=== PATIENT | male | born 1960 | race Hispanic/Latino ===

== ENCOUNTER 2018-04-27 11:34 | Inpatient (IN) | payer SELFPAY ==
--- NOTE | 2018-04-27 12:12 | XRay Report ---
FINAL REPORT EXAM: XR CHEST 1V AP HISTORY: hypertension TECHNIQUE: Frontal chest x-ray. PRIORS: None currently available. FINDINGS: Cardiac silhouette is within normal limits. There is no effusion. There is no pneumothorax. There is no consolidation. There are no suspicious osseous lesions. IMPRESSION: No acute cardiopulmonary findings.
[2018-04-27 12:21] LABS: Basophils % (Auto) 0.6 % (0.0-1.8); Eosinophils # (Auto) 0.1 K/mm3 (0.0-0.4); Eosinophils % (Auto) 2.5 % (0.0-4.3); Hemoglobin 15.8 gm/dl (11.8-15.2); Lymphocytes # (Auto) 2.1 K/mm3 (1.2-5.4); Lymphocytes % (Auto) 38.1 % (13.4-35.0); Mean Corpuscular HGB Conc 35 % (32-34); Mean Corpuscular Volume 84 fl (84-94); Monocytes # (Auto) 0.4 K/mm3 (0.0-0.8); Monocytes % (Auto) 7.5 % (0.0-7.3); Platelet Count 229 K/mm3 (140-440); Red Blood Count 5.49 M/mm3 (3.65-5.03); Red Cell Distribution Width 14.9 % (13.2-15.2)
[2018-04-27 12:30] LABS: BUN/Creatinine Ratio 38; Blood Urea Nitrogen 15 mg/dL (9-20); Calcium 9.4 mg/dL (8.4-10.2); Hemolysis Index 175
[2018-04-27] MEDS ORDERED: CLEOCIN 600 MG/50 mL 600 MG/50 ML BAG IV ONE (12:33)
[2018-04-27 12:37] LABS: INR 0.87 (0.87-1.13); Partial Thromboplastin Time 30.7 Sec. (24.2-36.6)
--- NOTE | 2018-04-27 12:39 | Emergency Department Report ---
ED Neuro Deficit HPI - General Chief Complaint: Weakness Stated Complaint: NUMBNESS/WEAKNESS/HEADACHE Time Seen by Provider: 04/27/18 11:50 Source: patient, family Mode of arrival: Ambulatory Limitations: Other - History of Present Illness Initial Comments: This is a 57-year-old male that says he experienced paresthesias of essentially his entire left side as well as difficulty in walking at about 3 PM yesterday. He is here with a family member who states that another individual also observe this at or about second time. The family members states that the patient has slightly slurred speech. The patient has many other complaints to include chron ic dental infection and some vertigo. He states he has a history of vertigo in the past. He denies fever or chills. He is not complaining of headache. He's had no acute change in vision. He does seem to comprehend my questions normally. He states that he does not note the slurred speech himself but it has been pointed out to him. He denies any previous history of CVA. -: Gradual Location: speech, left arm, left leg Presenting Symptoms: Present: Weak/Paralyzed One Side History of same: No Place: home Severity: mild Quality: weak, tingling Improves With: none On Anticoagulants: No Context: gradual onset Associated Symptoms: denies other symptoms Treatments Prior to Arrival: none - Related Data Allergies/Adverse Reactions: Allergies Allergy/AdvReac Type Severity Reaction Status Date / Time No Known Allergies Allergy Unverified 04/27/18 11:35 ED Review of Systems ROS: Stated complaint: NUMBNESS/WEAKNESS/HEADACHE Other details as noted in HPI Constitutional: denies: chills, fever Eyes: denies: eye pain, eye discharge, vision change ENT: ear pain, other (bad dentition left lower). denies: throat pain Respiratory: denies: cough, shortness of breath, wheezing Cardiovascular: denies: chest pain, palpitations Endocrine: no symptoms reported Gastrointestinal: denies: abdominal pain, nausea, diarrhea Genitourinary: denies: urgency, dysuria Musculoskeletal: denies: back pain, joint swelling, arthralgia Skin: denies: rash, lesions Neurological: as per HPI, weakness, paresthesias, abnormal gait, other. denies: headache Psychiatric: denies: anxiety, depression Hematological/Lymphatic: denies: easy bleeding, easy bruising ED Past Medical Hx - Past Medical History Additional medical history: "Vertigo" - Social History Smoking Status: Current Every Day Smoker Substance Use Type: None ED Neuro Physical Exam - General Limitations: No Limitations General appearance: alert, in no apparent distress Suspected Stroke: Yes - Head Head exam: Present: atraumatic, normocephalic - Eye Eye exam: Present: normal appearance. Absent: scleral icterus - ENT ENT exam: Present: mucous membranes moist, other (there is gingival inflammation and caries of the second and third molar lower left. No silver abscess formation.) - Neck Neck exam: Present: normal inspection. Absent: tenderness, meningismus - Respiratory Respiratory exam: Present: normal lung sounds bilaterally. Absent: respiratory distress - Cardiovascular Cardiovascular Exam: Present: regular rate, normal rhythm. Absent: systolic murmur, diastolic murmur, rubs, gallop - GI/Abdominal GI/Abdominal exam: Present: soft, normal bowel sounds. Absent: distended, tenderness, guarding, rebound, rigid - Rectal Rectal exam: Present: deferred - Extremities Exam Extremities exam: Present: normal inspection - Back Exam Back exam: Present: normal inspection - Neurological Exam Neurological exam: Present: alert, oriented X3, CN II-XII intact, motor sensory deficit - NIHSS Assessment Interval: Baseline 1a. Level of Consciousness: alert/keenly responsive 1b. LOC Questions: answers both correctly 1c. LOC Commands: performs tasks correctly 2. Best Gaze: normal 3. Visual: no visual loss 4. Facial Palsy: normal symmetrical movement 5b. Motor Arm Right: no drift 5a. Motor Arm Left: drift (very slight) 6a. Motor Leg Left: no drift (not detectable) 6b. Motor Leg Right: no drift 7. Limb Ataxia: absent 8. Sensory: mild/moderate sensory loss 9. Best Language: no aphasia 10. Dysarthria: mild/moderate dysarthria (very slight dysarthria) 11. Extinction/Inattention: no abnormality Total Score: 3 Stroke Severity: Minor Stroke - Psychiatric Psychiatric exam: Present: normal affect, normal mood - Skin Skin exam: Present: warm, dry, intact, normal color. Absent: rash ED Course Vital Signs 04/27/18 04/27/18 11:39 11:41 Temperature 98.3 F Pulse Rate 84 Respiratory 18 Rate Blood Pressure 163/110 O2 Sat by Pulse 95 Oximetry - Reevaluation(s) Reevaluation #1: I will give the patient an NIH stroke score 3. However he scores very slight in the 3 given categories. I will presume he has had a mild stroke of perhaps nearly 22 hours duration. He is not a candidate for thrombolytics. He will be admitted for stroke workup. He will be started on aspirin. He will be admitted by Dr. Lang. 04/27/18 12:39 - Lab Data Result diagrams: 04/27/18 11:56 04/27/18 11:56 Lab Results 04/27/18 04/27/18 04/27/18 Range/Units 11:43 11:56 11:56 WBC 5.6 (4.5-11.0) K/mm3 RBC 5.49 H (3.65-5.03) M/mm3 Hgb 15.8 H (11.8-15.2) gm/dl Hct 46.0 H (35.5-45.6) % MCV 84 (84-94) fl MCH 29 (28-32) pg MCHC 35 H (32-34) % RDW 14.9 (13.2-15.2) % Plt Count 229 (140-440) K/mm3 Lymph % (Auto) 38.1 H (13.4-35.0) % [place] % (Auto) 7.5 H (0.0-7.3) % Eos % (Auto) 2.5 (0.0-4.3) % Baso % (Auto) 0.6 (0.0-1.8) % Lymph # 2.1 (1.2-5.4) K/mm3 [place] # 0.4 (0.0-0.8) K/mm3 Eos # 0.1 (0.0-0.4) K/mm3 Baso # 0.0 (0.0-0.1) K/mm3 Seg Neutrophils % 51.3 (40.0-70.0) % Seg Neutrophils # 2.9 (1.8-7.7) K/mm3 PT 12.2 (12.2-14.9) Sec. INR 0.87 (0.87-1.13) APTT 30.7 (24.2-36.6) Sec. Thrombin Time (15.1-19.6) Sec. Sodium (137-145) mmol/L Potassium (3.6-5.0) mmol/L Chloride (98-107) mmol/L Carbon Dioxide (22-30) mmol/L Anion Gap mmol/L BUN (9-20) mg/dL Creatinine (0.8-1.5) mg/dL Estimated GFR ml/min BUN/Creatinine Ratio % Glucose (75-100) mg/dL POC Glucose 340 H (70-105) Calcium (8.4-10.2) mg/dL Total Bilirubin (0.1-1.2) mg/dL Direct Bilirubin (0-0.2) mg/dL Indirect Bilirubin mg/dL AST (5-40) units/L ALT (7-56) units/L Alkaline Phosphatase (35-129) units/L Troponin T (0.00-0.029) ng/mL Total Protein (6.3-8.2) g/dL Albumin (3.9-5) g/dL Albumin/Globulin Ratio % 04/27/18 04/27/18 04/27/18 Range/Units 11:56 11:56 11:56 WBC (4.5-11.0) K/mm3 RBC (3.65-5.03) M/mm3 Hgb (11.8-15.2) gm/dl Hct (35.5-45.6) % MCV (84-94) fl MCH (28-32) pg MCHC (32-34) % RDW (13.2-15.2) % Plt Count (140-440) K/mm3 Lymph % (Auto) (13.4-35.0) % [place] % (Auto) (0.0-7.3) % Eos % (Auto) (0.0-4.3) % Baso % (Auto) (0.0-1.8) % Lymph # (1.2-5.4) K/mm3 [place] # (0.0-0.8) K/mm3 Eos # (0.0-0.4) K/mm3 Baso # (0.0-0.1) K/mm3 Seg Neutrophils % (40.0-70.0) % Seg Neutrophils # (1.8-7.7) K/mm3 PT (12.2-14.9) Sec. INR (0.87-1.13) APTT (24.2-36.6) Sec. Thrombin Time 16.8 (15.1-19.6) Sec. Sodium 133 L (137-145) mmol/L Potassium 4.7 (3.6-5.0) mmol/L Chloride 93.2 L (98-107) mmol/L Carbon Dioxide 23 (22-30) mmol/L Anion Gap 22 mmol/L BUN 15 (9-20) mg/dL Creatinine 0.4 L (0.8-1.5) mg/dL Estimated GFR > 60 ml/min BUN/Creatinine Ratio 38 % Glucose 384 H (75-100) mg/dL POC Glucose (70-105) Calcium 9.4 (8.4-10.2) mg/dL Total Bilirubin 0.40 (0.1-1.2) mg/dL Direct Bilirubin 0.2 (0-0.2) mg/dL Indirect Bilirubin 0.2 mg/dL AST < 5 L (5-40) units/L ALT < 5 L (7-56) units/L Alkaline Phosphatase 62 (35-129) units/L Troponin T < 0.010 (0.00-0.029) ng/mL Total Protein 6.9 (6.3-8.2) g/dL Albumin 4.3 (3.9-5) g/dL Albumin/Globulin Ratio 1.7 % - EKG Data -: EKG Interpreted by Me EKG shows normal: sinus rhythm, intervals, ST-T waves Rate: normal Interpretation: no acute changes, other (left posterior fascicular block/right bundle branch block and right axis) - Radiology Data Radiology results: report reviewed (chest x-ray no acute process. I didn't see anything grossly the CT of the head. Report is pending.) - Thrombolytic Inclusion/Exclusion Thrombolytic Exclusion Criteria: Symptom Onset > 3 Hours Thrombolytic Inclusion Criteria: NIH Stroke Scale Deficit Critical care attestation.: If time is entered above; I have spent that time in minutes in the direct care of this critically ill patient, excluding procedure time. ED Disposition Clinical Impression: Dental infection, Bifascicular block CVA (cerebral vascular accident) Qualifiers: CVA mechanism: unspecified Qualified Code(s): I63.9 - Cerebral infarction, unspecified Disposition: DC-09 OP ADMIT IP TO THIS HOSP Is pt being admited?: Yes Does the pt Need Aspirin: Yes Condition: Stable Referrals: PRISCILA BECKMAN [Primary Care Provider] - 3-5 Days Time of Disposition: 13:28
[2018-04-27 12:41] LABS: Albumin 4.3 g/dL (3.9-5); Bilirubin,Direct 0.2 mg/dL (0-0.2)
--- NOTE | 2018-04-27 12:49 | Cat Scan Report ---
FINAL REPORT EXAM: CT HEAD/BRAIN WO CON HISTORY: neuro deficits < 6hrs or sx present upon awakening TECHNIQUE: CT of the Head without IV contrast. PRIORS: None currently available. FINDINGS: Prominent basilar artery suggest systemic hypertension. Near the basilar tip there is a low-attenuation area in the right thalamus measuring 9.6 cm which may represent a chronic lacunar infarct or a cystic lesion. There is no evidence for acute ischemia. There is no hemorrhage. There is no midline shift. There is no hydrocephalus. Age appropriate varner-white matter attenuation is noted. There is no calvarial fracture. The temporal bones demonstrate aerated mastoid air cells. The middle ears appear unremarkable. Mild mucosal thickening in the left maxillary sinus. Irregular soft tissue density with punctate calc ifications in the right maxillary sinus measures 2.0 x 2.1 cm. [id number] mucosal thickening in both ethmoid sinuses. Mild mucosal thickening in the left maxillary sinus. Globes are intact. IMPRESSION: Chronic lacunar infarct versus cystic lesion near the basilar tip in the right thalamus. Further eval uation with a CT or MRI brain with contrast may be helpful if clinically indicated. Suspect systemic hypertension. Irregular soft tissue lesion in the left maxillary sinus. Findings may represent a polyp, mucosal hyp ertrophy, or tumor. No bone destruction. Spqx-[id number] mucosal thickening in the paranasal sinuses . Otherwise, no acute intracranial findings.
[2018-04-27 12:53] LABS: Alanine Aminotransferase < 5 units/L (7-56)
[2018-04-27] MEDS ORDERED: DULCOLAX PR PRN (13:26)
[2018-04-27] MEDS ORDERED: PHENERGAN PR PRN (13:26)
[2018-04-27] MEDS ORDERED: TYLENOL PO PRN (13:26)
[2018-04-27] MEDS ORDERED: ZOFRAN IV PRN (13:26)
[2018-04-27] MEDS ORDERED: MILK OF MAGNESIA PO PRN (13:26)
[2018-04-27] MEDS ORDERED: REGLAN PO PRN (13:26)
[2018-04-27] MEDS ORDERED: ASPIRIN PO ONE (13:27)
--- NOTE | 2018-04-27 15:16 | Vascular Lab Report ---
FINAL REPORT EXAM: US CAROTID DUPLEX HISTORY: STROKE TECHNIQUE: Grayscale and color and spectral Doppler ultrasound imaging of the carotid arteries was p erformed. PRIORS: None. FINDINGS: No areas of complete occlusion. Normal waveforms are seen throughout. No aneurysm. Mild calcified ath erosclerotic plaque is seen bilaterally. Normal flow is seen in the external carotid arteries. Antegr jelly flow is seen in the vertebral arteries. Peak systolic velocities in cm/s below: Right: CCA: 83 proximally, 89 distally ICA: 60 proximally, 63 mid, 57 distally ECA: 115 Left: CCA: 72 proximally, 72 distally ICA: 85 proximally, 62 mid, 66 distally ECA: 87 The right ICA:CCA ratio is 0.71. The left ICA:CCA ratio is 1.17. IMPRESSION: Less than 50 percent stenosis of the internal carotid arteries.
[2018-04-27] MEDS ORDERED: ASPIRIN ONE (16:21)
--- NOTE | 2018-04-27 16:23 | History and Physical Report ---
History of Present Illness Date of admission: 04/27/18 15:42 Chief complaint: I feel weak on my left side. History of present illness: 57 YO Male with Vertigo, Dental Caries with poor dentition, Nicotine Dependence presents to ED for evaluation. Pt states that he experienced an acute onset of left arm and leg weakness, as well as slurred speech, and left sided numbness. Pt states that symptoms began around 1500hrs on yesterday. Pt was encouraged to seek further care and evaluation today by his family. Pt transported to [facility] for further care and evaluation by his son- who is at bedside during exam and interview. Pt seen and evaluated in ED. Code stroke called. Pt found to have symptoms consistent with CVA. Pt admitted to telemetry, and initiated on CVA protocol. Pt outside therapeutic window for TPA. Neurology consulted in ED. Pt denies fever, chills, CP, Palpitations, NVD, Trauma, BRBPR, unintentional weight loss, or night sweats. Past History Past Medical History: other (Vertigo') Past Surgical History: No surgical history, Other (reviewed) Social history: single, smoking Family history: no significant family history (reviewed) Medications and Allergies Allergies Allergy/AdvReac Type Severity Reaction Status Date / Time No Known Allergies Allergy Unverified 04/27/18 11:35 Active Meds: Active Medications Acetaminophen (Tylenol) 650 mg PO Q4H PRN PRN Reason: Pain, Mild (1-3) Aspirin (Aspirin) 325 mg PO QDAY ELVIA Atorvastatin Calcium (Lipitor) 40 mg PO QHS ELVIA Bisacodyl (Dulcolax) 10 mg OR QDAY PRN PRN Reason: Constipation Magnesium Hydroxide (Milk Of Magnesia) 30 ml PO Q4H PRN PRN Reason: Constipation Metoclopramide HCl (Reglan) 10 mg PO Q6H PRN PRN Reason: Nausea And Vomiting Ondansetron HCl (Zofran) 4 mg IV Q8H PRN PRN Reason: Nausea And Vomiting Promethazine HCl (Phenergan) 25 mg OR Q6H PRN PRN Reason: Nausea And Vomiting Sodium Chloride (Sodium Chloride Flush Syringe 10 Ml) 10 ml IV PRN PRN PRN Reason: LINE FLUSH Review of Systems Constitutional: no weight loss, no weight gain, no fever, no chills Ears, nose, mouth and throat: dental pain, no ear pain, no ear discharge, no tin nitis, no decreased hearing Cardiovascular: no chest pain, no orthopnea, no palpitations, no rapid/irregular heart beat, no edema Respiratory: no cough, no cough with sputum, no excessive sputum, no hemoptysis, no shortness of breath Gastrointestinal: no nausea, no vomiting, no diarrhea, no constipation Genitourinary Male: no hematuria, no flank pain, no discharge, no urinary frequency, no urinary hesitancy, no incontinence Rectal: no pain, no incontinence, no bleeding Musculoskeletal: no neck stiffness, no neck pain, no shooting arm pain, no arm numbness/tingling, no low back pain, no shooting leg pain Integumentary: no rash, no pruritis, no redness, no sores, no wounds Neurological: weakness, lack of coordination, aphasia, change in speech, gait dysfunction, motor disturbance, sensory deficit, no head injury, no headaches, no confusion, no memory loss Psychiatric: no anxiety, no memory loss, no change in sleep habits, no sleep disturbances, no insomnia, no hypersomnia Endocrine: no cold intolerance, no heat intolerance, no polyphagia, no excessive thirst, no polydipsia, no polyuria, no nocturia Hematologic/Lymphatic: no easy bruising, no easy bleeding, no lymphadenopathy, no lymphedema Allergic/Immunologic: no urticaria, no allergic rhinitis, no wheezing Exam - Constitutional Vitals: Temp Pulse Resp BP Pulse Ox 98.3 F 84 18 163/110 95 04/27/18 11:41 04/27/18 11:39 04/27/18 14:34 04/27/18 11:39 04/27/18 14:34 General appearance: Present: mild distress - EENT Eyes: Present: PERRL ENT: hearing intact, clear oral mucosa - Neck Neck: Present: supple, normal ROM - Respiratory Respiratory effort: normal Respiratory: bilateral: CTA - Cardiovascular Heart Sounds: Present: S1 & S2. Absent: rub, click - Extremities Extremities: pulses symmetrical, No edema Peripheral Pulses: within normal limits - Abdominal Male genitourinary: Present: normal - Integumentary Integumentary: Present: clear, warm, dry - Musculoskeletal Musculoskeletal: left sided weakness - Psychiatric Psychiatric: appropriate mood/affect, intact judgment & insight - Neurologic Neurologic: CNII-XII intact, moves all extremities, no gait normal Results - Labs CBC & Chem 7: 04/27/18 11:56 04/27/18 11:56 Labs: Abnormal lab results 04/27/18 04/27/18 04/27/18 Range/Units 11:43 11:56 11:56 RBC 5.49 H (3.65-5.03) M/mm3 Hgb 15.8 H (11.8-15.2) gm/dl Hct 46.0 H (35.5-45.6) % MCHC 35 H (32-34) % Lymph % (Auto) 38.1 H (13.4-35.0) % [place] % (Auto) 7.5 H (0.0-7.3) % Sodium 133 L (137-145) mmol/L Chloride 93.2 L (98-107) mmol/L Creatinine 0.4 L (0.8-1.5) mg/dL Glucose 384 H (75-100) mg/dL POC Glucose 340 H (70-105) AST (5-40) units/L ALT (7-56) units/L 04/27/18 04/27/18 Range/Units 11:56 16:22 RBC (3.65-5.03) M/mm3 Hgb (11.8-15.2) gm/dl Hct (35.5-45.6) % MCHC (32-34) % Lymph % (Auto) (13.4-35.0) % [place] % (Auto) (0.0-7.3) % Sodium (137-145) mmol/L Chloride (98-107) mmol/L Creatinine (0.8-1.5) mg/dL Glucose (75-100) mg/dL POC Glucose 269 H (70-105) AST < 5 L (5-40) units/L ALT < 5 L (7-56) units/L Assessment and Plan - Patient Problems (1) CVA (cerebral vascular accident) Current Visit: Yes Status: Acute Qualifiers: CVA mechanism: unspecified Qualified Code(s): I63.9 - Cerebral infarction, unspecified Plan to address problem: Stroke Protocol: CT head, MRI Brain, MRA Brain, Antiplatelet therapy, Echo, Carotid doppler, lipid panel, statin therapy, PT/OT/ Speech Therapy (2) Nicotine dependence unspecified, with withdrawal Current Visit: Yes Status: Acute Qualifiers: Nicotine product type: cigarettes Qualified Code(s): F17.213 - Nicotine dependence, cigarettes, with withdrawal Plan to address problem: Supportive care, smoking cessation counseling, (3) Dental infection Current Visit: Yes Status: Acute Plan to address problem: Empiric antibiotic therapy in ED, outpatient dental exam/f/u (4) DVT prophylaxis Current Visit: Yes Status: Acute Plan to address problem: SCD to BLE while in bed.
[2018-04-27] MEDS ORDERED: D50W (25GM) Syringe IV PRN (16:24)
[2018-04-27] MEDS: HumaLOG SUB-Q SCH ×2 (18:02→23:50)
[2018-04-27] MEDS: SODIUM CHLORIDE FLUSH SYRINGE 10 ML IV PRN (21:41)
[2018-04-28] MEDS: HumaLOG SUB-Q SCH ×4 (06:13→23:57)
[2018-04-28 06:51] LABS: HDL Cholesterol 18 mg/dL (40-59)
[2018-04-28 07:03] LABS: LDL Cholesterol,Direct TNR mg/dL (50-130)
--- NOTE | 2018-04-28 11:46 | Magnetic Resonance Report ---
MRI OF THE BRAIN WITHOUT CONTRAST: HISTORY: CVA PROCEDURE: Multiplanar, multisequence MR imaging of the brain without IV contrast was performed. FINDINGS: Compared CT head dated 04/27/18. MRI demonstrates a 2.2 x 0.9 cm area of diffusion restriction in the right pedro on diffusion image 11. There is mild edema on the T2-weighted sequences in this area but no evidence for hemorrhage or mass effect. No other areas of diffusion restriction are identified. Moderate diffuse volume loss and mild nonspecific chronic white matter changes are identified. No chronic infarct The midline structures are central. The basal cisterns are patent. Normal ventricular size. The orbital cavities and sella turcica demonstrate no abnormality. There is mild mucosal thickening throughout all paranasal sinuses. The left maxillary sinus is most affected. IMPRESSION: 2.2 x 0.9 cm area of subacute ischemia in the right pedro. Moderate diffuse cortical volume loss. Mild nonspecific chronic white matter changes. Mild chronic sinusitis.
--- NOTE | 2018-04-28 11:49 | Magnetic Resonance Report ---
MRA HEAD WITHOUT CONTRAST HISTORY: Stroke. [id number] imaging with MIP reformations of the campo of [place] is submitted. The distal internal carotid arteries, anterior cerebral arteries and middle cerebral arteries are patent with less than 20% stenosis. The left vertebral artery is dominant. The basilar artery is ectatic and mildly dilated throughout measuring 6 mm in diameter. Mild diffuse fusiform dilatation of the basilar artery could be considered. The posterior cerebral arteries are patent but appeared to demonstrate slightly diminished flow on [id number] imaging. No evidence for dissection, stenosis or moreno aneurysm. IMPRESSION: Ectatic and mildly dilated basilar artery as described. No large vessel occlusion or hemodynamically significant stenosis is identified. See above.
[2018-04-28] MEDS: ASPIRIN PO SCH (13:10)
[2018-04-28] MEDS: TRICOR PO SCH (19:56)
[2018-04-28] MEDS: SODIUM CHLORIDE FLUSH SYRINGE 10 ML IV PRN (21:25)
[2018-04-29] MEDS: HumaLOG SUB-Q SCH ×2 (06:33→16:36)
--- NOTE | 2018-04-29 07:45 | Progress Note ---
Assessment and Plan - Patient Problems (1) CVA (cerebral vascular accident) Current Visit: Yes Status: Acute Qualifiers: CVA mechanism: unspecified Qualified Code(s): I63.9 - Cerebral infarction, unspecified Plan to address problem: Had pontine infarct Improving well Good prognosis D/w patient (2) T2DM (type 2 diabetes mellitus) Current Visit: Yes Status: Chronic Qualifiers: Diabetes mellitus fpc insulin use: without counselor/art therapist use Plan to address problem: Initiated on Glimepride and Metformin (3) Hypertriglyceridemia Current Visit: Yes Status: Chronic Plan to address problem: Initiated on Fenofibrate and statins (4) DVT prophylaxis Current Visit: Yes Status: Acute Plan to address problem: On Lovenox and plavox Subjective Date of service: 04/28/18 Principal diagnosis: Acute CVA Interval history: Improvement in Lt sided weakness Able to walk with al limp Objective - Constitutional Vitals: Vital Signs - 12hr 04/28/18 04/28/18 04/28/18 20:07 22:00 22:04 Temperature 98.4 F Pulse Rate 85 Respiratory 18 18 Rate Blood Pressure 141/98 O2 Sat by Pulse 92 98 92 Oximetry 04/28/18 04/29/18 04/29/18 23:23 00:00 05:38 Temperature 98.6 F 97.6 F Pulse Rate 75 79 79 Respiratory 20 20 Rate Blood Pressure 116/74 111/76 O2 Sat by Pulse 91 90 Oximetry General appearance: Present: no acute distress, well-nourished - EENT Eyes: PERRL, EOM intact ENT: hearing intact, clear oral mucosa Ears: bilateral: normal - Neck Neck: supple, normal ROM - Respiratory Respiratory effort: normal Respiratory: bilateral: CTA - Breasts Breasts: normal - Cardiovascular Heart rate: 76 Rhythm: regular Heart Sounds: Present: S1 & S2. Absent: gallop, rub Extremities: no ischemia, pulses intact, No edema, normal color, Full ROM - Gastrointestinal General gastrointestinal: Present: soft, non-tender, non-distended, normal bowel sounds - Genitourinary Male genitourinary: normal - Integumentary Integumentary: clear, warm, dry - Musculoskeletal Musculoskeletal: left sided weakness (power 3/5 in LLE 4/5 in LUE ) - Neurologic Neurologic: moves all extremities - Psychiatric Psychiatric: memory intact, appropriate mood/affect, intact judgment & insight - Labs CBC & Chem 7: 04/27/18 11:56 04/27/18 11:56 Labs: Abnormal lab results 04/28/18 04/28/18 04/28/18 Range/Units 13:03 15:40 21:55 POC Glucose 318 H 298 H 259 H (70-105) 04/29/18 Range/Units 06:35 POC Glucose 274 H (70-105) Brain MRI IMPRESSION: 2.2 x 0.9 cm area of subacute ischemia in the right pedro. Moderate diffuse cortical volume loss. Mild nonspecific chronic white matter changes. Mild chronic sinusitis. Brain MRA IMPRESSION: Ectatic and mildly dilated basilar artery as described. No large vessel occlusion or hemodynamically significant stenosis is identified. See above
[2018-04-29 08:19] VITALS: BP 147/90
[2018-04-29] MEDS ORDERED: AMARYL PO SCH (10:30)
[2018-04-29] MEDS ORDERED: GLUCOPHAGE PO SCH (10:30)
[2018-04-29] MEDS: ASPIRIN PO SCH (11:50)
[2018-04-29] MEDS: TRICOR PO SCH (11:50)
--- NOTE | 2018-04-29 12:05 | Discharge Summary ---
Providers - Providers Date of Admission: 04/27/18 15:42 Attending physician: CLARE ZIEGLER MD 04/27/18 13:27 Occupational Therapy Evaluate and Treat [CONS] Routine Comment: Reason For Exam: Neuro deficits Physical Therapy Evaluation and Treat [CONS] Routine Comment: Reason For Exam: Neuro deficits Speech Therapy Evaluation and Treat [CONS] Routine Reason For Exam: swallow eval 04/28/18 07:00 Consult to Physician [CONS] Routine Comment: Consulting Provider: RODNEY OG Physician Instructions: Reason For Exam: cva Primary care physician: PRISCILA BECKMAN Hospitalization Reason for admission: CVA Condition: Stable Pertinent studies: MRI brain IMPRESSION: 2.2 x 0.9 cm area of subacute ischemia in the right pedro. Moderate diffuse cortical volume loss. Mild nonspecific chronic white matter changes. Mild chronic sinusitis. MRA head IMPRESSION: Ectatic and mildly dilated basilar artery as described. No large vessel occlusion or hemodynamically significant stenosis is identified. See above. Carotid Dopplers IMPRESSION: Less than 50 percent stenosis of the internal carotid arteries. Echo; no vegetation seen. Hospital course: 57 YO Male with Vertigo, Dental Caries with poor dentition, Nicotine Dependence presents to ED for evaluation. Pt states that he experienced an acute onset of left arm and leg weakness, as well as slurred speech, and left sided numbness. Pt states that symptoms began a day before presentation. Pt was encouraged to seek further care and evaluation today by his family. Pt transported to [facility] for further care and evaluation by his son- who was at bedside during exam and interview. Pt seen and evaluated in ED. Code stroke called. Pt found to have symptoms consistent with CVA. Pt admitted to telemetry, and initiated on CVA protocol. Pt outside therapeutic window for TPA. Neurology consulted in ED. Patient is admitted to the hospital and MRI showed right pontine infarct and patient managed according to CVA protocol. Patient on aspirin and atorvastatin. Neurology consult appreciated. Patient does complaining to toothache which looks infected and given antibiotic at the time of discharge. patient was alert and oriented. All symptoms resolved and discharged home in a stable condition. Disposition: DC/TX-06 HOME UNDER HOME [facility] Time spent for discharge: 32 minutes - Discharge Diagnoses (1) CVA (cerebral vascular accident) Status: Acute Qualifiers: CVA mechanism: unspecified Qualified Code(s): I63.9 - Cerebral infarction, unspecified (2) Dental infection Status: Acute (3) T2DM (type 2 diabetes mellitus) Status: Chronic Qualifiers: Diabetes mellitus penitentiary insulin use: without penitentiary use Core Measure Documentation - Palliative Care Palliative Care/ Comfort Measures: Not Applicable - Core Measures Any of the following diagnoses?: stroke - Stroke Discharge Requirements Statin for LDL = or >70 mg/dl on DC: Yes Anticoag for atrial fib/atrial flutter: Not Applicable Antithrombotic for ischemic stroke: Yes Exam - Physical Exam Narrative exam: Not in cardiopulmonary distress. The patient appeared well nourished and normally developed. Vital signs as documented. Head exam is unremarkable. No scleral icterus . Neck is without jugular venous distension, thyromegaly, or carotid bruits. Lungs are clear to auscultation. Cardiac exam reveals regular rate and Rhythm. First and second heart sounds normal. No murmurs, rubs or gallops. Abdominal exam reveals normal bowel sounds, no masses, no organomegaly and no aortic enlargement. Extremities are nonedematous and both femoral and pedal pulses are normal. MANAGER BEVERAGE: Alert and oriented 3. No focal weakness. - Constitutional Vitals: Temp Pulse Resp BP Pulse Ox 98.6 F 82 20 147/90 93 04/29/18 08:18 04/29/18 08:18 04/29/18 08:18 04/29/18 08:18 04/29/18 08:27 Plan Activity: no restrictions Weight Bearing Status: Full Weight Bearing Diet: low cholesterol, diabetic Follow up with: PRISCILA BECKMAN [Primary Care Provider] - 7 Days Prescriptions: AtorvaSTATin [Lipitor] 40 mg PO QHS #60 tablet Amoxicillin/K Clav Tab [Augmentin 875 mg] 1 tab PO Q12HR #14 tab Aspirin [Aspirin TAB] 325 mg PO QDAY #30 tablet Diabetic Supplies,Miscell [Enlite Serter] 1 each MC TID #1 miscell Fenofibrate [Tricor] 145 mg PO QDAY #30 tablet Glimepiride [Amaryl] 4 mg PO QDDIAB #30 tablet Insulin NPH/Regular [NovoLIN 70/30] 15 unit SQ BIDDIAB #1 vial metFORMIN [Glucophage] 500 mg PO BIDDIAB #60 tablet
--- NOTE | 2018-04-29 16:22 | Progress Note ---
Subjective Date of service: 04/29/18 Principal diagnosis: Acute CVA Interval history: etiology of the stroke is likely HTN there is typical ischemic infract in the right pedro recommend BP control and medical amangement may be discharged Objective - Vital Sign Vital Signs - 12hr 04/29/18 04/29/18 04/29/18 05:38 08:18 08:27 Temperature 97.6 F 98.6 F Pulse Rate 79 82 Respiratory 20 20 Rate Blood Pressure 111/76 147/90 O2 Sat by Pulse 90 94 93 Oximetry - Laboratory Findings CBC and BMP: 04/27/18 11:56 04/27/18 11:56 Abnormal Lab Findings: Abnormal Labs 04/27/18 04/27/18 04/27/18 11:43 11:56 11:56 RBC 5.49 H Hgb 15.8 H Hct 46.0 H MCHC 35 H Lymph % (Auto) 38.1 H [place] % (Auto) 7.5 H Sodium 133 L Chloride 93.2 L Creatinine 0.4 L Glucose 384 H POC Glucose 340 H Hemoglobin A1c AST ALT Triglycerides Cholesterol HDL Cholesterol 04/27/18 04/27/18 04/27/18 11:56 16:22 17:21 RBC Hgb Hct MCHC Lymph % (Auto) [place] % (Auto) Sodium Chloride Creatinine Glucose POC Glucose 269 H 283 H Hemoglobin A1c AST < 5 L ALT < 5 L Triglycerides Cholesterol HDL Cholesterol 04/27/18 04/28/18 04/28/18 21:26 05:10 06:15 RBC Hgb Hct MCHC Lymph % (Auto) [place] % (Auto) Sodium Chloride Creatinine Glucose POC Glucose 303 H 278 H Hemoglobin A1c AST ALT Triglycerides 1860 H Cholesterol 342 H HDL Cholesterol 18 L 04/28/18 04/28/18 04/28/18 13:03 15:40 21:55 RBC Hgb Hct MCHC Lymph % (Auto) [place] % (Auto) Sodium Chloride Creatinine Glucose POC Glucose 318 H 298 H 259 H Hemoglobin A1c AST ALT Triglycerides Cholesterol HDL Cholesterol 04/29/18 04/29/18 06:35 09:29 RBC Hgb Hct MCHC Lymph % (Auto) [place] % (Auto) Sodium Chloride Creatinine Glucose POC Glucose 274 H Hemoglobin A1c 12.3 H AST ALT Triglycerides Cholesterol HDL Cholesterol
--- NOTE | 2018-04-29 21:22 | Consultation ---
HISTORY OF PRESENT ILLNESS: This is a 57-year-old white male that was admitted initially to [facility] on 04/27/2018. The patient was admitted acutely to the hospital with onset of dizziness, vertigo, paresthesias involving his left side of his face, difficulty with speaking. He also had complaining of double vision. Subsequent to admission, the patient admits he has never had symptoms such as this in the past. When he was admitted, he had a blood pressure of 163/110. He was acutely hypertensive. His hematocrit was 46. His sodium is 133. The patient had no known allergies. The patient's medications on admission were none. PHYSICAL EXAMINATION: VITAL SIGNS: Reveal his blood pressure to be 163/110, pulse rate 80, respirations 18. NEUROLOGIC: Cranial nerves 2-12 are intact. He has a very obvious internuclear ophthalmoplegia bilateral, but worse on gaze to the right than to the left. He has a lag in his lateral vision in his right eye. His pupils are reactive. His face has a slight reduced sensation on the right side. His speech is definitely slightly slurred, but he has no hiccups. He does not have any gross ataxia. Limb movements are normal. Gait is normal. Reflexes intact. No focal weakness noted in the upper extremities. IMPRESSION: Brainstem stroke, right pedro as evidenced by internuclear ophthalmoplegia, also the vertigo and ataxia. Recommend better blood pressure control. Follow up with me in the office. I did recommend a stroke factor risk reduction. The patient may be stable for discharge after discussion with Dr. Eller. JOB# [id number] CAITY/NTS
== END 2018-04-29 19:30 | disposition home health service (06) | DRG 65 ==
LOC: ED 11:34 → 4A 15:42
PROVIDERS: ADMIT Internal Medicine; ATTEND Internal Medicine
DX: I63.9 Cerebral infarction, unspecified (principal); I45.2 Bifascicular block; F17.213 Nicotine dependence, cigarettes, with withdrawal; G81.94 Hemiplegia, unspecified affecting left nondominant side; K04.7 Periapical abscess without sinus; F17.210 Nicotine dependence, cigarettes, uncomplicated; E11.9 Type 2 diabetes mellitus without complications; E78.1 Pure hyperglyceridemia; I10 Essential (primary) hypertension
CPT/HCPCS: 36415; 70450; 70544; 70551; 71045; 80048; 80061; 80076; 82962; 83036; 84484; 85025; 85610; 85670; 85730; 93005; 93010; 93306; 93880; 96365; 96366; G0378; A9270-GY; J1815

== ENCOUNTER 2018-05-03 12:07 | Emergency (ER) | payer SELFPAY ==
[2018-05-03] MEDS ORDERED: NACL 0.9% 1000 ML 1,000 ML IV ONE (12:42)
--- NOTE | 2018-05-03 12:42 | Emergency Department Report ---
ED General Adult HPI - General Chief complaint: Neuro Symptoms/Deficit Stated complaint: NEURO ISSUES Time Seen by Provider: 05/03/18 12:37 Source: patient, family Mode of arrival: Ambulatory Limitations: Altered Mental Status - History of Present Illness Initial comments: This is a 58-year-old male who took 2 of his friends nitroglycerin caused his friend "told him it would prevent another stroke". The patient was found to be pale by family members. He vomited 1. He felt weak. However, he denied any chest symptoms whatsoever. He was not short of breath. Denied cough. He is not felt that he had a fever or chills his history was recently discharged from the hospital. The patient was admitted here and found to have a right pontine stroke last week. He denies any acute focal neurological change. He states he has dry eyes but no acute change of vision. He is able to walk without difficulty. He denies any weakness or numbness in his arms or his legs. Per his recent discharge summary: 57 YO Male with Vertigo, Dental Caries with poor dentition, Nicotine Dependence presents to ED for evaluation. Pt states that he experienced an acute onset of left arm and leg weakness, as well as slurred speech, and left sided numbness. Pt states that symptoms began a day before presentation. Pt was encouraged to seek further care and evaluation today by his family. Pt transported to [facility] for further care and evaluation by his son- who was at bedside during exam and interview. Pt seen and evaluated in ED. Code stroke called. Pt found to have symptoms consistent with CVA. Pt admitted to telemetry, and initiated on CVA protocol. Pt outside therapeutic window for TPA. Neurology consulted in ED. Patient is admitted to the hospital and MRI showed right pontine infarct and patient managed according to CVA protocol. Patient on aspirin and atorvastatin. Neurology consult appreciated. Patient does complaining to toothache which looks infected and given antibiotic at the time of discharge. patient was alert and oriented. All symptoms resolved and discharged home in a stable condition. Disposition: [id number]/TX-06 HOME UNDER HOME [facility] Time spent for discharge: 32 minutes - Discharge Diagnoses (1) CVA (cerebral vascular accident) Status: Acute Qualifiers: CVA mechanism: unspecified Qualified Code(s): I63.9 - Cerebral infarction, unspecified (2) Dental infection Status: Acute (3) T2DM (type 2 diabetes mellitus) Status: Chronic Qualifiers: Diabetes mellitus nursing home insulin use: without oysterman use Severity scale (0 -10): 5 Associated Symptoms: denies other symptoms - Related Data Previous Rx's Medication Instructions Recorded Last Taken Type Amoxicillin/K Clav Tab [Augmentin 1 tab PO Q12HR #14 tab 04/29/18 Unknown Rx 875 mg] Aspirin [Aspirin TAB] 325 mg PO QDAY #30 tablet 04/29/18 Unknown Rx AtorvaSTATin [Lipitor] 40 mg PO QHS #60 tablet 04/29/18 Unknown Rx Diabetic Supplies,Miscell [Enlite 1 each MC TID #1 miscell 04/29/18 Unknown Rx Serter] Fenofibrate [Tricor] 145 mg PO QDAY #30 tablet 04/29/18 Unknown Rx Glimepiride [Amaryl] 4 mg PO QDDIAB #30 tablet 04/29/18 Unknown Rx Insulin NPH/Regular [NovoLIN 70/30] 15 unit SQ BIDDIAB #1 vial 04/29/18 Unknown Rx metFORMIN [Glucophage] 500 mg PO BIDDIAB #60 tablet 04/29/18 Unknown Rx Allergies Allergy/AdvReac Type Severity Reaction Status Date / Time No Known Allergies Allergy Unverified 04/27/18 11:35 ED Review of Systems ROS: Stated complaint: NEURO ISSUES Other details as noted in HPI Constitutional: denies: chills, fever Eyes: denies: eye pain, eye discharge, vision change ENT: denies: ear pain, throat pain Respiratory: denies: cough, shortness of breath, wheezing Cardiovascular: denies: chest pain, palpitations Endocrine: no symptoms reported Gastrointestinal: denies: abdominal pain, nausea, diarrhea Genitourinary: denies: urgency, dysuria Musculoskeletal: denies: back pain, joint swelling, arthralgia Skin: denies: rash, lesions Neurological: denies: headache, weakness, paresthesias Psychiatric: denies: anxiety, depression Hematological/Lymphatic: denies: easy bleeding, easy bruising ED Past Medical Hx - Past Medical History Hx Congestive Heart Failure: No Hx Diabetes: Yes Hx Asthma: No Hx COPD: No Additional medical history: "Vertigo" - Surgical History Additional Surgical History: knee and shoulder surgery - Social History Smoking Status: Never Smoker Substance Use Type: None - Medications Home Medications: Home Medications Medication Instructions Recorded Confirmed Last Taken Type Amoxicillin/K Clav Tab [Augmentin 1 tab PO Q12HR #14 tab 04/29/18 Unknown Rx 875 mg] Aspirin [Aspirin TAB] 325 mg PO QDAY #30 tablet 04/29/18 Unknown Rx AtorvaSTATin [Lipitor] 40 mg PO QHS #60 tablet 04/29/18 Unknown Rx Diabetic Supplies,Miscell [Enlite 1 each MC TID #1 miscell 04/29/18 Unknown Rx Serter] Fenofibrate [Tricor] 145 mg PO QDAY #30 tablet 04/29/18 Unknown Rx Glimepiride [Amaryl] 4 mg PO QDDIAB #30 tablet 04/29/18 Unknown Rx Insulin NPH/Regular [NovoLIN 70/30] 15 unit SQ BIDDIAB #1 vial 04/29/18 Unknown Rx metFORMIN [Glucophage] 500 mg PO BIDDIAB #60 tablet 04/29/18 Unknown Rx ED Physical Exam - General Limitations: No Limitations General appearance: alert, in no apparent distress - Head Head exam: Present: atraumatic, normocephalic - Eye Eye exam: Present: normal appearance - ENT ENT exam: Present: mucous membranes moist - Neck Neck exam: Present: normal inspection - Respiratory Respiratory exam: Present: normal lung sounds bilaterally. Absent: respiratory distress - Cardiovascular Cardiovascular Exam: Present: regular rate, normal rhythm. Absent: systolic murmur, diastolic murmur, rubs, gallop - GI/Abdominal GI/Abdominal exam: Present: soft, normal bowel sounds. Absent: distended, tenderness, guarding, rebound, rigid - Rectal Rectal exam: Present: deferred - Extremities Exam Extremities exam: Present: normal inspection - Back Exam Back exam: Present: normal inspection - Neurological Exam Neurological exam: Present: alert, oriented X3, CN II-XII intact, normal gait, other (visual berger are equal by confrontation). Absent: motor sensory deficit - Psychiatric Psychiatric exam: Present: normal affect, normal mood - Skin Skin exam: Present: warm, dry, intact, normal color. Absent: rash ED Course Vital Signs 05/03/18 05/03/18 05/03/18 12:15 12:28 12:30 Temperature 98.0 F Pulse Rate 77 74 71 Respiratory 18 16 16 Rate Blood Pressure 108/92 155/86 O2 Sat by Pulse 96 94 Oximetry 05/03/18 12:43 Temperature Pulse Rate Respiratory Rate Blood Pressure O2 Sat by Pulse 95 Oximetry - Reevaluation(s) Reevaluation #1: I discussed the patient's history with him again. Certainly it was somewhat bizarre. The patient denies any history of any mental health issues. According to family members he does have a "disability claim". They state this is for physical but not mental disability. His adventure with the nitroglycerin certainly wasn't consistent with good judgment. However he does have good mental capacity at this time. He doesn't meet any criteria for admission. He states he feels completely back to normal now. He realizes that taking nitroglycerin from her friend did not make much sense and states he will not do it again. He is taking aspirin for stroke prophylaxis he states and is compliant. 05/03/18 15:10 ED Medical Decision Making - Lab Data Result diagrams: 05/03/18 12:51 05/03/18 12:51 Laboratory Results - last 24 hr 05/03/18 05/03/18 05/03/18 12:14 12:51 12:51 WBC 4.6 RBC 4.99 Hgb 13.9 Hct 41.1 MCV 82 L MCH 28 MCHC 34 RDW 14.2 Plt Count 166 Lymph % (Auto) 19.6 [place] % (Auto) 6.9 Eos % (Auto) 2.4 Baso % (Auto) 0.9 Lymph # 0.9 L [place] # 0.3 Eos # 0.1 Baso # 0.0 Seg Neutrophils % 70.2 H Seg Neutrophils # 3.2 PT 12.8 INR 0.91 APTT 20.0 L Sodium Potassium Chloride Carbon Dioxide Anion Gap BUN Creatinine Estimated GFR BUN/Creatinine Ratio Glucose POC Glucose 241 H Lactic Acid Calcium Total Bilirubin Direct Bilirubin Indirect Bilirubin AST ALT Alkaline Phosphatase Ammonia Total Creatine Kinase Troponin T Total Protein Albumin Albumin/Globulin Ratio TSH Salicylates Acetaminophen Plasma/Serum Alcohol 05/03/18 05/03/18 05/03/18 12:51 12:51 12:51 WBC RBC Hgb Hct MCV MCH MCHC RDW Plt Count Lymph % (Auto) [place] % (Auto) Eos % (Auto) Baso % (Auto) Lymph # [place] # Eos # Baso # Seg Neutrophils % Seg Neutrophils # PT INR APTT Sodium 135 L Potassium 4.4 Chloride 97.4 L Carbon Dioxide 24 Anion Gap 18 BUN 18 Creatinine 0.7 L Estimated GFR > 60 BUN/Creatinine Ratio 26 Glucose 274 H POC Glucose Lactic Acid 1.50 Calcium 9.5 Total Bilirubin Direct Bilirubin Indirect Bilirubin AST ALT Alkaline Phosphatase Ammonia Total Creatine Kinase Troponin T Total Protein Albumin Albumin/Globulin Ratio TSH Salicylates Acetaminophen Plasma/Serum Alcohol < 0.01 05/03/18 05/03/18 05/03/18 12:51 12:51 12:51 WBC RBC Hgb Hct MCV MCH MCHC RDW Plt Count Lymph % (Auto) [place] % (Auto) Eos % (Auto) Baso % (Auto) Lymph # [place] # Eos # Baso # Seg Neutrophils % Seg Neutrophils # PT INR APTT Sodium Potassium Chloride Carbon Dioxide Anion Gap BUN Creatinine Estimated GFR BUN/Creatinine Ratio Glucose POC Glucose Lactic Acid Calcium Total Bilirubin 0.40 Direct Bilirubin < 0.2 Indirect Bilirubin 0.2 AST 28 ALT 38 Alkaline Phosphatase 49 Ammonia 30.0 Total Creatine Kinase 32 L Troponin T < 0.010 Total Protein 6.8 Albumin 4.2 Albumin/Globulin Ratio 1.6 TSH 1.770 Salicylates Acetaminophen Plasma/Serum Alcohol 05/03/18 05/03/18 12:51 12:51 WBC RBC Hgb Hct MCV MCH MCHC RDW Plt Count Lymph % (Auto) [place] % (Auto) Eos % (Auto) Baso % (Auto) Lymph # [place] # Eos # Baso # Seg Neutrophils % Seg Neutrophils # PT INR APTT Sodium Potassium Chloride Carbon Dioxide Anion Gap BUN Creatinine Estimated GFR BUN/Creatinine Ratio Glucose POC Glucose Lactic Acid Calcium Total Bilirubin Direct Bilirubin Indirect Bilirubin AST ALT Alkaline Phosphatase Ammonia Total Creatine Kinase Troponin T Total Protein Albumin Albumin/Globulin Ratio TSH Salicylates < 0.3 L Acetaminophen < 5.0 L Plasma/Serum Alcohol - Radiology Data Radiology results: report reviewed (CT head and chest x-ray no acute process) Critical care attestation.: If time is entered above; I have spent that time in minutes in the direct care of this critically ill patient, excluding procedure time. ED Disposition Clinical Impression: Adverse effects of medication Qualifiers: Encounter type: initial encounter Qualified Code(s): T50.905A - Adverse effect of unspecified drugs, medicaments and biological substances, initial encounter Disposition: DC-01 TO HOME OR SELFCARE Is pt being admited?: No Does the pt Need Aspirin: No Condition: Stable Additional Instructions: Obviously, do not take her friend's nitroglycerin again. Return to the emergency department a acute change or problem. Follow-up with primary care provider. Monitor your sugar. Continue aspirin. Time of Disposition: 15:13
[2018-05-03 13:16] LABS: Basophils % (Auto) 0.9 % (0.0-1.8); Eosinophils # (Auto) 0.1 K/mm3 (0.0-0.4); Eosinophils % (Auto) 2.4 % (0.0-4.3); Hematocrit 41.1 % (35.5-45.6); Hemoglobin 13.9 gm/dl (11.8-15.2); Lymphocytes # (Auto) 0.9 K/mm3 (1.2-5.4); Lymphocytes % (Auto) 19.6 % (13.4-35.0); Mean Corpuscular HGB Conc 34 % (32-34); Mean Corpuscular Volume 82 fl (84-94); Monocytes # (Auto) 0.3 K/mm3 (0.0-0.8); Monocytes % (Auto) 6.9 % (0.0-7.3); Platelet Count 166 K/mm3 (140-440); Red Blood Count 4.99 M/mm3 (3.65-5.03); Red Cell Distribution Width 14.2 % (13.2-15.2)
--- NOTE | 2018-05-03 13:25 | XRay Report ---
FINAL REPORT PROCEDURE: XR CHEST 1V AP TECHNIQUE: Chest radiograph anteroposterior view. CPT 75053 HISTORY: Altered Mental Status COMPARISON: 04/27/2018 FINDINGS: Heart: Normal. Mediastinum/Vessels: Normal. Lungs/Pleural space: No infiltrate, effusion, or pneumothorax. Bony thorax: No acute osseous abnormality. Life support devices: None. IMPRESSION: No radiographic evidence of acute cardiopulmonary abnormality.
[2018-05-03 13:26] LABS: INR 0.91 (0.87-1.13)
[2018-05-03 13:27] LABS: BUN/Creatinine Ratio 26; Blood Urea Nitrogen 18 mg/dL (9-20); Calcium 9.5 mg/dL (8.4-10.2); Hemolysis Index 9
[2018-05-03 13:31] LABS: Alanine Aminotransferase 38 units/L (7-56); Albumin 4.2 g/dL (3.9-5)
--- NOTE | 2018-05-03 14:00 | Cat Scan Report ---
FINAL REPORT PROCEDURE: CT HEAD/BRAIN WO CON TECHNIQUE: Computerized tomography of the head was performed without contrast material. HISTORY: Altered Mental Status COMPARISON: 04/27/2018 FINDINGS: There is dolichoectasia of the basilar artery. There is no CT evidence of intracranial hemorrhage, ac [place] infarction, or hydrocephalus. There is again seen a 9 millimeter CSF density subthala sam focus, possibly related to a lacunar infarct or cystic lesion, as seen previously. No acute fract ure is seen. Mastoids are aerated. There is bilateral ethmoid sinus mucosal thickening. IMPRESSION: No CT evidence of acute abnormality There is again seen a 9 millimeter CSF density subthalamic focus, possibly related to a lacunar infar ct or cystic lesion. This could be evaluated with MRI as clinically indicated.
[2018-05-03 14:12] LABS: Bilirubin,Direct < 0.2 mg/dL (0-0.2)
[2018-05-03 15:50] VITALS: BP 135/93
== END 2018-05-03 15:49 | disposition home or self-care (01) ==
LOC: ED 12:07
DX: R11.10 Vomiting, unspecified (principal); M79.602 Pain in left arm; R53.1 Weakness; R20.0 Anesthesia of skin; T46.3X5A Adverse effect of coronary vasodilators, initial encounter; E11.9 Type 2 diabetes mellitus without complications; Z79.82 Long term (current) use of aspirin; Z79.4 Long term (current) use of insulin; Y92.89 Other specified places as the place of occurrence of the external cause
CPT/HCPCS: 36415; 70450; 71045; 80048; 80076; 82140; 82550; 82962; 84443; 84484; 85025; 85610; 85730; 96360; 96361; 99284; G0480; 80320